=== PATIENT | female | born 1980 | race Two or more races ===

== ENCOUNTER 2018-11-15 08:47 | Emergency (ER) | payer SELFPAY ==
[2018-11-15 08:54] VITALS: TEMP 98.5; BMI 31.0
[2018-11-15] MEDS ORDERED: SODIUM CHLORIDE 0.9% 500 ML INFUS.BAG IV ONE (10:15)
[2018-11-15 10:40] LABS: BASO % 0.7 % (0-2.0); EOS % 2.9 % (0-4.5); HEMATOCRIT 37.2 % (32.4-45.2); HEMOGLOBIN 12.7 GM/dL (10.7-15.3); LYMPH % 33.6 % (8-40); MCH 26.2 pg (25.7-33.7); MCHC 34.1 g/dl (32.0-36.0); MEAN CELL VOLUME 76.7 fl (80-96); MEAN PLT VOLUME 7.6 fl (7.5-11.1); MONO % 8.8 % (3.8-10.2); PLATELET COUNT 289 K/MM3 (134-434); RBC 4.84 M/mm3 (3.60-5.2); RDW 16.7 % (11.6-15.6); WHITE BLOOD COUNT 4.2 K/mm3 (4.0-10.0)
[2018-11-15 10:45] VITALS: BP 120/85; PULSE 82
[2018-11-15 11:16] LABS: ALBUMIN 3.4 g/dl (3.4-5.0); ALK PHOS 70 U/L (45-117); ANION GAP 3 MMOL/L (8-16); BILIRUBIN,TOTAL 0.4 mg/dL (0.2-1); BLOOD UREA NITROGEN 11.9 mg/dL (7-18); CHLORIDE 107 mmol/L (98-107); CO2 28 mmol/L (21-32); CREATININE 0.9 mg/dL (0.55-1.3); GLUCOSE,RANDOM 85 mg/dL (74-106); POTASSIUM 4.5 mmol/L (3.5-5.1); SGOT/AST 16 U/L (15-37); SGPT/ALT 25 U/L (13-61); SODIUM 139 mmol/L (136-145)
--- NOTE | 2018-11-15 11:40 | PDOC ---
Attending Attestation - Resident Resident Name: Deion Meneses - ED Attending Attestation I have performed the following: I have examined & evaluated the patient, The case was reviewed & discussed with the resident, I agree w/resident's findings & plan, Exceptions are as noted - HPI HPI: 11/15/18 11:37 38 F with h/o HLD presents to ED with lightheadedness and palpitations since last night. Pt states that she had an episode of "tachycardia" and felt her heart racing. Denies CP/SOB. She notes feeling lightheaded the time. Today, at work she had another similar episode lasting several minutes. Pt states that her symptoms resolved prior to arrival to ED. No complaints at this time. Denies N/V/D. Denies F/C. Denies ORTEGA. - Physicial Exam PE: 11/15/18 11:38 "GENERAL: Awake, alert, and fully oriented, in no acute distress. HEAD: No signs of trauma EYES: PERRLA, EOMI, sclera anicteric, conjunctiva clear ENT: Auricles normal inspection, hearing grossly normal, nares patent, oropharynx clear without exudates. Moist mucosa NECK: Nontender, no stepoffs, Normal ROM, supple, no lymphadenopathy, JVD, or masses LUNGS: Breath sounds equal, clear to auscultation bilaterally. No wheezes, and no crackles HEART: Regular rate and rhythm, normal S1 and S2, no murmurs, rubs or gallops ABDOMEN: Soft, nontender, normoactive bowel sounds. No guarding, no rebound. No masses EXTREMITIES: Normal range of motion, no edema. No clubbing or cyanosis. No cords, erythema, or tenderness NEUROLOGICAL: Cranial nerves II through XII intact. 5/5 strength and sensation in all extremities, Normal speech, normal gait, normal cerebellar function SKIN: Warm, Dry, normal turgor, no rashes or lesions noted. - Medical Decision Making 11/15/18 11:38 38 F with intermittent palpitations and lightheadedness, now resolved. EKG is NSR, no evidence of arrhythmia. Vitals stable. - Labs wnl Pt reassessed - continues to feel well, without complaints. Ambulatory in ED with steady gait. I recommended pt f/u with cards for holter monitor. Pt is well appearing, with normal vitals. Clinically stable for DC at this time. I discussed the physical exam findings, ancillary test results and final diagnoses with the patient. I answered all of the patient's questions. The patient was satisfied with the care received and felt comfortable with the discharge plan and treatment plan. The patient agrees to follow up with the primary care physician within 24-72 hours.
--- NOTE | 2018-11-15 11:43 | PDOC ---
History of Present Illness - General Chief Complaint: Blood Pressure Problem Stated Complaint: HTN/ORTEGA/PALPITATIONS Time Seen by Provider: 11/15/18 09:24 History Source: Patient Exam Limitations: No Limitations - History of Present Illness Initial Comments: 11/15/18 11:42 Juana Sewell is a 38yF w PMHx HLD presenting with palpitations. She had 2 episodes lasting 5 seconds last night and this morning. Associated headache which resolved. Now feeling lightheaded. Denies fever, cough, vomiting , chest pain, SOB, urinary/bowel mvmt changes. Drinks 5 glasses of fluids/day, trying to limit coffee to 1 cup. Past History - Past Medical History Allergies/Adverse Reactions: Allergies Allergy/AdvReac Type Severity Reaction Status Date / Time ampicillin Allergy Verified 10/08/15 18:02 Home Medications: Ambulatory Orders Cyanocobalamin (Vitamin B-12) [Vitamin B12] 0 mcg PO DAILY 11/15/18 COPD: No - Immunization History Immunization Up to Date: Yes - Suicide/Smoking/Psychosocial Hx Smoking History: Never smoked Have you smoked in the past 12 months: No Information on smoking cessation initiated: No Hx Alcohol Use: No Drug/Substance Use Hx: No Substance Use Type: None Review of Systems - Review of Systems Constitutional: No: Chills, Fever HEENTM: No: Eye Pain, Nose Pain, Throat Pain, Mouth Pain Respiratory: No: Cough, Shortness of Breath Cardiac (ROS): Yes: Palpitations. No: Chest Pain, Syncope ABD/GI: No: Abdominal Distended, Constipated, Diarrhea, Nausea, Vomiting : No: Burning, Dysuria, Discharge, Flank Pain, Hematuria, Incontinence Musculoskeletal: No: Back Pain, Joint Pain, Muscle Pain, Muscle Weakness Integumentary: No: Bruising, Flushing, Lesions Neurological: No: Headache, Numbness, Seizure, Tingling Psychiatric: No: Anxiety, Depression, Stressors Endocrine: No: Excessive Sweating, Flushing, Intolerance to Cold, Intolerance to Heat Hematologic/Lymphatic: No: Anemia, Blood Clots, Easy Bleeding *Physical Exam - Vital Signs Last Vital Signs Temp Pulse Resp BP Pulse Ox 98.5 F 82 17 120/85 99 11/15/18 08:52 11/15/18 10:44 11/15/18 10:44 11/15/18 10:44 11/15/18 10:44 - Physical Exam General Appearance: Yes: Nourished, Appropriately Dressed. No: Apparent Distress HEENT: positive: EOMI, IRINA, Normal Voice, Hearing Grossly Normal. negative: Scleral Icterus (R), Scleral Icterus (L), Nasal Congestion, Rhinorrhea Respiratory/Chest: positive: Lungs Clear, Normal Breath Sounds. negative: Chest Tender, Respiratory Distress, Crackles, Rales, Rhonchi, Stridor, Wheezing Cardiovascular: positive: Regular Rhythm, Regular Rate, S1, S2. negative: Edema , Murmur Extremity: positive: Normal Capillary Refill Integumentary: positive: Normal Color Neurologic: positive: Fully Oriented, Alert, Normal Response, Responsive. negative: Sensory Deficit, Confused, Disoriented ED Treatment Course - LABORATORY CBC & Chemistry Diagram: 11/15/18 10:30 11/15/18 10:30 - ADDITIONAL ORDERS Additional order review: Laboratory Results 11/15/18 10:30 Sodium 139 Potassium 4.5 Chloride 107 Carbon Dioxide 28 Anion Gap 3 L BUN 11.9 Creatinine 0.9 Est GFR (CKD-EPI)AfAm 94.01 Est GFR (CKD-EPI)NonAf 81.11 Random Glucose 85 Calcium 9.0 Total Bilirubin 0.4 AST 16 ALT 25 Alkaline Phosphatase 70 Creatine Kinase 82 Troponin I < 0.02 Total Protein 7.0 Albumin 3.4 Beta HCG, Quant < 1.0 11/15/18 10:30 RBC 4.84 MCV 76.7 L MCHC 34.1 RDW 16.7 H MPV 7.6 Neutrophils % 54.0 Lymphocytes % 33.6 Monocytes % 8.8 Eosinophils % 2.9 Basophils % 0.7 - RADIOLOGY Radiology Studies Ordered: Category Date Time Status CHEST PA & LAT [RAD] Stat Radiology 11/15/18 10:15 Ordered - Medications Given in the ED: ED Medications Discontinued Medications Generic Name Dose Route Start Last Admin Trade Name Freq PRN Reason Stop Dose Admin Sodium Chloride 1,000 ml 11/15/18 10:15 11/15/18 10:55 Normal Saline - IV 11/15/18 10:16 1,000 ml ONCE ONE Administration Medical Decision Making - Medical Decision Making 11/15/18 11:45 EKG NSR HR 83, QTc 439, no ST changes Juana Jan Sewell is a 38yF w PMHx HLD presenting with palpitations. ACS ruled out w normal EKG, neg trop. Not . Feeling better after 1L NS given. D/c home w cardiology referral *DC/Admit/Observation/Transfer Diagnosis at time of Disposition: Palpitations - Discharge Dispostion Disposition: HOME Condition at time of disposition: Improved Decision to Admit order: No - Referrals Referrals: Jeffy Martinez MD [Primary Care Provider] - Jean Baxter MD [Staff Physician] - - Patient Instructions Printed Discharge Instructions: DI for Palpitations Additional Instructions: Te vieron por palpitaciones. Tus laboratorios no muestran nada Juan M un seguimiento con el cardilogo referido Dr Baxter sobre mary palpitaciones. Recomendamos obtener un monitor Holter Regrese al servicio de urgencias si tiene dolor en el pecho, no puede respirar o vomita. Print Language: MOHAWK - Post Discharge Activity
--- NOTE | 2018-11-15 11:59 | EKG ---
Test Reason : Blood Pressure : / mmHG Vent. Rate : 083 BPM Atrial Rate : 083 BPM P-R Int : 168 ms QRS Dur : 066 ms QT Int : 374 ms P-R-T Axes : 041 048 058 degrees QTc Int : 439 ms NORMAL SINUS RHYTHM NONSPECIFIC T WAVE ABNORMALITY ABNORMAL ECG NO PREVIOUS ECGS AVAILABLE Confirmed by CODY COBB, STEVEN ([id number]) on 11/15/2018 11:58:35 AM Referred By: Confirmed By:STEVEN ROSS MD
== END 2018-11-15 12:11 | disposition home or self-care (01) ==
LOC: JER 08:47
PROC: 3E0337Z Introduction of Electrolytic and Water Balance Substance into Peripheral Vein, Percutaneous Approach (ICD-10-PCS; principal; 2018-11-15)
DX: R00.2 Palpitations (principal)
CPT/HCPCS: 36415; 80053; 82550; 84484; 84702; 85025; 93005; 93010; 99284-25